=== PATIENT | male | born 1975 | race Caucasian/White ===

== ENCOUNTER 2016-12-02 19:20 | Emergency (ER) | payer OTHER ==
--- NOTE | ~2016-12-02 | CR107 ---
[facility] A Service of [facility] RADIOLOGY TEXT RESULTS PATIENT: JUDITH RODRIGUEZ LOCATION: [facility] : [birth year] UNIT #: [id number] AGE: [address]: JOVAN SHIRLEY APRN SEX: M ORDER DR: [id number] [facility] [address] [place], [place] [address] [id number] MR#: [id number] Acc #: [id number] NAME: JUDITH RODRIGUEZ : 1975 SEX: M STUDY DATE/TIME: 12/02/2016 19:41 UNIT: [facility] ROOM: STUDY DESCRIPTION: CR Femur 2 Views Rt Attending Physician: Jovna Shirley Aprn Ordering Physician: Jovan Shirley Aprn Primary Care Physician: Primary Care Physician No MEDICAL IMAGING REPORT This report is preliminary unless electronic signature is present EXAM Right femur AP and lateral HISTORY Right hip pain for 2 months.. No recent injury. FINDINGS AP and lateral views of the right femur demonstrate satisfactory femur alignment. No acute fracture. Probable heterotopic ossification or old fracture deformity at the tip of the greater trochanter. Intramedullary jerry extends from the greater trochanter to the distal femoral metaphysis with compression screw fixation extending to the femoral head. Lucency along the bone - jerry interface at the level of the greater trochanter along the lateral margin suggests mild loosening. IMPRESSION 1. No acute fracture. 2. Internal fixation of the femur. 3. Approximately 3 mm lucency between the bone and lateral margin of the fixation jerry at the level of the greater trochanter could reflect mild loosening. The remainder of the internal fixation hardware appears satisfactory. Dictated by... Iraj Hercules M.D. THIS IS AN ELECTRONICALLY VERIFIED REPORT Iraj Hercules M.D. at 12/03/2016 10:39 PM FLORES/addis TD: 12/02/2016 23:45 [facility] A Service of [facility] RADIOLOGY TEXT RESULTS PATIENT: JUDITH RODRIGUEZ LOCATION: [facility] : 71 UNIT #: [id number] AGE: [address]: JOVAN SHIRLEY APRN SEX: M ORDER DR: HORTENSIA #: [id number] MEDICAL IMAGING REPORT Page 1 of 1 COPY
--- NOTE | ~2016-12-02 | CR151 ---
[facility] A Service of [facility] RADIOLOGY TEXT RESULTS PATIENT: JUDITH RODRIGUEZ LOCATION: [facility] : [birth year] UNIT #: [id number] AGE: [address]: JOVAN SHIRLEY APRN SEX: M ORDER DR: [id number] [place] [id number] [facility] [place], [place] [address] [id number] E MR#: [id number] Acc #: [id number] NAME: JUDITH RODRIGUEZ : 1975 SEX: M STUDY DATE/TIME: 12/02/2016 19:45 UNIT: [facility] ROOM: STUDY DESCRIPTION: CR Hip Min 2 Views Rt Attending Physician: Jovan Shirley Aprn Ordering Physician: Jovan Shirley Aprn Primary Care Physician: Primary Care Physician No MEDICAL IMAGING REPORT This report is preliminary unless electronic signature is present EXAM Right hip 2 views HISTORY Right hip pain for 2 months. No injury recently. FINDINGS 2 views of the right hip demonstrate a 2-3 mm lucency at the bone - intramedullary jerry interface along the lateral margin of the greater trochanter, which could reflect mild loosening. The remainder of the visualized intramedullary jerry and compression screw appear satisfactory. Hip alignment is normal. Probable old post-traumatic or postoperative calcification along the superior margin of the greater trochanter. Mild degenerative changes in the right hip. IMPRESSION 1. Mild lucency along the interface at the bone - intramedullary jerry junction in the greater trochanter along the lateral margin could reflect mild loosening. 2. Mild degenerative changes in the right hip. 3. No acute finding. Dictated by... Iraj Hercules M.D. THIS IS AN ELECTRONICALLY VERIFIED REPORT Iraj Hercules M.D. at 12/03/2016 10:39 PM FLORES/addis TD: 12/03/2016 00:09 JOB #: [id number] [facility] A Service of [facility] RADIOLOGY TEXT RESULTS PATIENT: JUDITH RODRIGUEZ [id number] [birth year] UNIT #: [id number] AGE: [address]: JOVAN SHIRLEY APRN SEX: M ORDER DR: MEDICAL IMAGING REPORT Page 1 of 1 COPY
[~2016-12-02 19:20] MED LIST: KEFLEX500 MG PO
[2017-01-18] MEDS ORDERED: PROTONIX PO (14:18)
[2017-01-18] MEDS ORDERED: HUMALOG100 UNIT/1 SUBQ (14:21)
[2017-01-19] MEDS ORDERED: BASAGLAR K100 UNIT/1 SUBQ (08:49)
== END 2016-12-02 22:00 | disposition home or self-care (01) ==
LOC: CFTX 19:20
DX: M25.551 Pain in right hip (principal); G89.29 Other chronic pain; E11.9 Type 2 diabetes mellitus without complications; F17.210 Nicotine dependence, cigarettes, uncomplicated; Z98.890 Other specified postprocedural states
CPT/HCPCS: 73502; 73552; 82947; 96372; 96374; 99284; J1885

== ENCOUNTER → 2017-01-19 | Day surgery (SDC) | payer OTHER ==
[~2017-01-19] MED LIST changes: +BASAGLAR K100 UNIT/1 SUBQ; +HUMALOG100 UNIT/1 SUBQ; +PROTONIX PO
--- NOTE | ~2017-01-19 | OR ---
Unit #: [id number] #: [id number] Patient: JUDITH RODRIGUEZ [id number] [place], [place] [address] [id number] MR#: [id number] NAME: JUDITH RODRIGUEZ ROOM: Date of Procedure: 01/19/2017 Admission Date: 01/19/2017 Surgeon: Sandeep Brower M.D. : 1975 Attending Physician: Catrachito Brower Primary Care Physician: Cookie Brown M.D. SURGERY CENTER OPERATIVE NOTE PROCEDURE PERFORMED Lumbar epidural steroid injection under x-ray guided needle placement with provider administered conscious sedation. PREOPERATIVE DIAGNOSES 1. Acute lumbar radiculitis. 2. Spinal stenosis, lumbosacral spine. 3. Herniated disk, L5-S1. 4. Retrolisthesis, L4-L5. 5. Degenerative joint disease, lumbosacral spine. 6. Degenerative disk disease, lumbosacral spine. INDICATIONS FOR PROCEDURE The patient presents today with a 4-month history of crescendo pattern right-sided greater than left radicular pain, which has failed to respond to conservative measures, which included medications only as he unable to complete physical therapy due to his pain. He is in possession of MRI, which shows a L4-L5 listhesis and L5-S1 stenosis caused by large herniated disk. After discussing risks and benefits of proceeding today with a lumbar approach epidural steroid injection and return on February 07 for potential repeat, the patient agreed this would be the appropriate course of action. DESCRIPTION OF PROCEDURE He was then taken to the operating room, where he was prepped and draped in sterile manner. Standard monitors were applied. He was sedated initially with 2 mg of IV Versed and required an additional 2 mg of IV Versed throughout the duration of the procedure. Lumbar epidural space was accessed at the L5-S1 level using loss of resistance technique and x-ray guidance. Needle placement was confirmed with injection of 2 mL of Omnipaque. Approximately 90% of dye flow was in the superior direction, although we did get flow out the L5-S1 nerve root. Following successful needle placement confirmation, which required an x-ray time of 4 seconds, the patient received an injectate containing 2 mL of normal saline, 2 mL of 0.25% bupivacaine, and 80 mg of methylprednisolone. He tolerated this procedure well. He was discharged home with followup instructions, which include return dates as described above. Dictated by... Fiona Montenegro/kameron Unit #: [id number] #: [id number] Patient: JUDITH RODRIGUEZ TD: 01/19/2017 11:31 JOB #: [id number] CC: Iasi Lozano M.D. SURGERY CENTER OPERATIVE NOTE Page 1 of 1 X Catrachito Brower MD X PROCEDURE OPERATIVE NOTE
== END | disposition home or self-care (01) ==
LOC: CCSC 08:31
DX: M51.17 Intervertebral disc disorders with radiculopathy, lumbosacral region (principal); M48.07 Spinal stenosis, lumbosacral region; M47.27 Other spondylosis with radiculopathy, lumbosacral region; M43.16 Spondylolisthesis, lumbar region; K21.9 Gastro-esophageal reflux disease without esophagitis; E11.9 Type 2 diabetes mellitus without complications; F17.210 Nicotine dependence, cigarettes, uncomplicated; Z87.01 Personal history of pneumonia (recurrent); Z79.4 Long term (current) use of insulin; Z79.899 Other long term (current) drug therapy
CPT/HCPCS: J1040; J2250

== ENCOUNTER → 2017-02-07 | Day surgery (SDC) | payer OTHER | END | disposition home or self-care (01) | LOC: CCSC 12:00 | DX: M54.9 Dorsalgia, unspecified (principal); E11.9 Type 2 diabetes mellitus without complications; K21.9 Gastro-esophageal reflux disease without esophagitis; F17.210 Nicotine dependence, cigarettes, uncomplicated; Z53.8 Procedure and treatment not carried out for other reasons; Z79.4 Long term (current) use of insulin; Z79.899 Other long term (current) drug therapy; Z96.641 Presence of right artificial hip joint; Z98.890 Other specified postprocedural states ==